=== PATIENT | female | born 1965 | race Caucasian/White ===

== ENCOUNTER 2018-08-06 09:46 | Emergency (ER) | payer BC ==
[2018-08-06] MEDS ORDERED: SODIUM CHLORIDE 1,000 ML IV STA (10:26)
[2018-08-06] MEDS ORDERED: ONDANSETRON 4 MG/2 ML VIAL IVPUSH ONE (10:26)
[2018-08-06 10:28] VITALS: TEMP 98.4; BMI 40.3
--- NOTE | 2018-08-06 10:32 | PDOC ---
Attending Attestation - Resident Resident Name: Ellis Ramsay - ED Attending Attestation I have performed the following: I have examined & evaluated the patient, The case was reviewed & discussed with the resident, I agree w/resident's findings & plan, Exceptions are as noted - HPI HPI: 08/06/18 11:33 Ms womack is a 52 yo F h/o multiple allergies, hypothyroidism, recurrent complaints of chest pain (previously evaluated) presenting with a complaint of chest pain which began last night, associated with right arm and jaw, mouth numbness, nausea. pt denies weakness Not worse with deep breath or palpation of the area No fevers chills cough 08/06/18 11:52 - Physicial Exam PE: 08/06/18 11:34 GENERAL: The patient is in no acute distress. NECK: Normal range of motion, supple without lymphadenopathy, JVD, or masses. LUNGS: Breath sounds equal, clear to auscultation bilaterally. No wheezes, and no crackles. HEART:Regular rate and rhythm, normal S1 and S2 without murmur, rub or gallop. ABDOMEN: Soft, nontender, normoactive bowel sounds. No guarding, no rebound. No masses palpable. EXTREMITIES: Normal range of motion, no edema. No clubbing or cyanosis. No erythema, or tenderness. NEUROLOGICAL: Cranial nerves II through XII grossly intact. Normal speech. No focal neurological deficits. MUSCULOSKELETAL: Back non-tender to palpation, no CVA tenderness SKIN: Warm, Dry, normal turgor, no rashes or lesions noted. - Medical Decision Making 08/06/18 11:34 Laboratory Tests 08/06/18 08/06/18 08/06/18 10:35 10:35 10:35 WBC Hgb Hct Plt Count INR 1.03 Alkaline Phosphatase 92 Troponin I < 0.03 08/06/18 10:39 WBC 4.4 Hgb 12.5 Hct 37.9 Plt Count 304 INR Alkaline Phosphatase Troponin I Twelve-lead EKG was performed and reviewed by me. There is normal sinus rhythm with a normal rate. The axis is normal. The intervals are normal. There are no ST or T wave abnormalities. Impression: Normal twelve-lead EKG Pt feels better Pt demonstrates no weakness Pt asked to return to the ER for any weakness, persistent symptoms Any other concerns or complaints
[2018-08-06] MEDS ORDERED: ONDANSETRON 4 MG/2 ML VIAL ONE (10:41)
--- NOTE | 2018-08-06 10:46 | PDOC ---
History of Present Illness - General Chief Complaint: Pain Stated Complaint: TINGLING TO RIGHT ARM JAW CHEST NAUSEA Time Seen by Provider: 08/06/18 09:53 History Source: Patient Exam Limitations: No Limitations - History of Present Illness Initial Comments: 08/06/18 10:40 Patient is a 52F with history of allergies, hypothyroidism here today complaining of chest pain that started last night with associated tingling/pain to her right arm and jaw, mouth numbness, nausea. Patient states that her chest pain doesn't change with palpation, inspiration, exertion. It does not improve with rest. Denies leg swelling, recent travel, leg swelling, history of blood clots and estrogen use. Patient is on multiple allergy medications including odactra. Patient has had multiple cardiac workups in the past including multiple holter monitors, all of which were normal. Denies fevers, chills, vomiting. Denies abdominal pain and dysuria. Patient states that she feels weaker than normal and feels a little dizzy. Denies ear pain. Past History - Past Medical History Allergies/Adverse Reactions: Allergies Allergy/AdvReac Type Severity Reaction Status Date / Time house dust mite Allergy Intermediate Verified 08/06/18 10:02 Home Medications: Ambulatory Orders Budesonide/Formeterol Fumarate [SYMBICORT 80/4.5mcg -] 2 inh IH DAILY 08/06/18 Cromolyn Sodium 20 mg IH HS 08/06/18 Levothyroxine [Synthroid -] 125 mcg PO DAILY 08/06/18 Mepolizumab [Nucala] 100 mg SQ MONTHLY 08/06/18 Mite,D.farinae-D.pteronyssinus [Odactra 12 Sq-Hdm Sl Tablet] 1 each SL DAILY 11/23 Montelukast Sodium [Singulair] 10 mg PO HS 08/06/18 Umeclidinium [place] [Incruse Ellipta] 1 puff IH DAILY 08/06/18 COPD: No Psychiatric Problems: Yes (ANXIETY) Thyroid Disease: Yes - Suicide/Smoking/Psychosocial Hx Smoking History: Former smoker Have you smoked in the past 12 months: Yes If you are a former smoker, when did you quit?: 23 YEARS AGO Information on smoking cessation initiated: No Hx Alcohol Use: Yes (SOCIAL) Drug/Substance Use Hx: No Substance Use Type: Alcohol Review of Systems - Review of Systems Able to Perform ROS?: Yes Comments:: 08/06/18 10:44 GENERAL/CONSTITUTIONAL: No fever or chills. No weakness. HEAD, EYES, EARS, NOSE AND THROAT: No change in vision. No ear pain or discharge. No sore throat. CARDIOVASCULAR: +chest pain, No shortness of breath RESPIRATORY: No cough, wheezing, or hemoptysis. GASTROINTESTINAL: No nausea, vomiting, diarrhea or constipation. GENITOURINARY: No dysuria, frequency, or change in urination. MUSCULOSKELETAL: No joint or muscle swelling or pain. No neck or back pain. SKIN: No rash NEUROLOGIC: No headache, +vertigo, no loss of consciousness, or change in strength/sensation. ENDOCRINE: No increased thirst. No abnormal weight change HEMATOLOGIC/LYMPHATIC: No anemia, easy bleeding, or history of blood clots. ALLERGIC/IMMUNOLOGIC: No hives or skin allergy. *Physical Exam - Vital Signs Last Vital Signs Temp Pulse Resp BP Pulse Ox 98.4 F 70 16 118/72 99 08/06/18 09:49 08/06/18 09:49 08/06/18 09:49 08/06/18 09:49 08/06/18 09:49 - Physical Exam Comments: 08/06/18 10:46 GENERAL: Awake, alert, and fully oriented, in no acute distress HEAD: No signs of trauma, normocephalic, atraumatic EYES: PERRLA, EOMI, sclera anicteric, conjunctiva clear ENT: Auricles normal inspection, hearing grossly normal, nares patent, oropharynx clear without exudates. Moist mucosa NECK: Normal ROM, supple, no lymphadenopathy, JVD, or masses LUNGS: No distress, speaks full sentences, clear to auscultation bilaterally HEART: Regular rate and rhythm, normal S1 and S2, no murmurs, rubs or gallops, peripheral pulses normal and equal bilaterally. ABDOMEN: Soft, nontender, normoactive bowel sounds. No guarding, no rebound. No masses EXTREMITIES: Normal inspection, Normal range of motion, no edema. No clubbing or cyanosis. NEUROLOGICAL: Cranial nerves II through XII grossly intact. Normal speech, normal gait, no focal sensorimotor deficits, normal cerebellar function SKIN: Warm, Dry, normal turgor, no rashes or lesions noted. ED Treatment Course - LABORATORY CBC & Chemistry Diagram: 08/06/18 10:39 08/06/18 10:35 - RADIOLOGY Radiology Studies Ordered: Category Date Time Status CHEST PA & LAT [RAD] Stat Radiology 08/06/18 10:25 Ordered Medical Decision Making - Medical Decision Making 08/06/18 10:46 Patient is 52F here today with arm tingling, chest pain, mouth numbness. Vitals normal and stable. PE considered, do not believe likely given patient's history and physical. Stroke considered, do not believe likely given lack of motor function deficits, slurred speech. DDx includes, but is not limited to: ACS, arrhythmia, medication side effect. EGK shows sinus bradycardia with a rate of 59. No st elevations/depressions. No significant t wave abnormalities. Normal axis. Normal intervals. 08/06/18 10:52 CXR shows no acute cardiopulmonary process. 08/06/18 11:40 CBC, CMP normal. Trop undetectable. Coags normal. 08/06/18 11:49 Patient reassessed, feeling better. Given return precautions, instructed to follow up with PCP, expressed understanding. Asked for referral for new PCP. *DC/Admit/Observation/Transfer Diagnosis at time of Disposition: Chest pain - Discharge Dispostion Disposition: HOME Condition at time of disposition: Good Decision to Admit order: No - Referrals Referrals: Rita Benz MD [Primary Care Provider] - [facility] [Provider Group] - Patient Instructions Printed Discharge Instructions: DI for Atypical Chest Pain Additional Instructions: Please follow up with your primary care doctor this week. Please return if you have any new, worsening or concerning symptoms, especially fevers, shortness of breath and increasing pain. - Post Discharge Activity Forms/Work/School Notes: Back to Work
[2018-08-06 10:59] LABS: BASO % 1.6 % (0-2.0); EOS % 1.9 % (0-4.5); HEMATOCRIT 37.9 % (32.4-45.2); HEMOGLOBIN 12.5 GM/dl (10.7-15.3); MCH 27.6 pg (25.7-33.7); MEAN CELL VOLUME 83.5 fl (80-96); MONO % 7.5 % (3.8-10.2); PLATELET COUNT 304 K/MM3 (134-434); RBC 4.54 M/mm3 (3.60-5.2); RDW 14.6 % (11.6-15.6); WHITE BLOOD COUNT 4.4 K/mm3 (4.0-10.8)
[2018-08-06 11:05] LABS: ALBUMIN 3.7 g/dl (3.5-5.0); ALK PHOS 92 U/L (32-92); ANION GAP 8 MMOL/L (8-16); BILIRUBIN,TOTAL 0.7 mg/dl (0.2-1.0); BLOOD UREA NITROGEN 13 mg/dl (7-18); CALCIUM 8.9 mg/dl (8.4-10.2); CHLORIDE 102 mmol/L (98-107); CO2 27 mmol/L (22-28); CREATININE 0.8 mg/dl (0.6-1.3); GLUCOSE,RANDOM 111 mg/dl (74-106); MAGNESIUM 2.2 mg/dL (1.8-2.4); SGOT/AST 20 U/L (10-42); SGPT/ALT 22 U/L (10-40); SODIUM 137 mmol/L (136-145); TOT PROT 6.9 g/dl (6.4-8.3)
[2018-08-06 11:21] LABS: INR 1.03 (0.82-1.09); PROTHROMBIN TIME (PATIENT) 11.5 SEC (10.2-13.0)
[2018-08-06 12:04] VITALS: BP 134/74; PULSE 60
--- NOTE | 2018-08-07 10:48 | EKG ---
Test Reason : Blood Pressure : / mmHG Vent. Rate : 059 BPM Atrial Rate : 059 BPM P-R Int : 160 ms QRS Dur : 086 ms QT Int : 454 ms P-R-T Axes : 053 025 029 degrees QTc Int : 449 ms SINUS BRADYCARDIA OTHERWISE NORMAL ECG NO PREVIOUS ECGS AVAILABLE Confirmed by Jax Ziegler MD ([id number]) on 08/07/2018 10:48:14 AM Referred By: YOSELIN TREVINO Confirmed By:Jax Ziegler MD
== END 2018-08-06 12:04 | disposition home or self-care (01) ==
LOC: FER 09:46
PROC: 3E033GC Introduction of Other Therapeutic Substance into Peripheral Vein, Percutaneous Approach (ICD-10-PCS; principal; 2018-08-06)
PROC: 3E0337Z Introduction of Electrolytic and Water Balance Substance into Peripheral Vein, Percutaneous Approach (ICD-10-PCS; 2018-08-06)
DX: R07.9 Chest pain, unspecified (principal); E03.9 Hypothyroidism, unspecified; F41.9 Anxiety disorder, unspecified; Z87.891 Personal history of nicotine dependence
CPT/HCPCS: 36415; 71046-TC-FY; 80053; 83735; 84484; 85025; 85610; 93005; 99285-25; J7030